=== PATIENT | female | born 1955 | race Caucasian/White ===

== ENCOUNTER 2022-09-14 19:57 | Emergency (ER) | payer OTHER, BC ==
[~2022-09-14] VITALS: Ht 152.4 cm; Wt 55.8 kg
[2022-09-14 20:22] VITALS: BP_SYST 140
--- NOTE | 2022-09-14 20:30 | NUR ---
PT FROM HOME WITH C/O OF RIGHT FOOT PAIN X 2 WEEKS, 11/03. PAIN INCREASES UPON AMBULATION, VSS. PT TO WAITING ROOM. REQUESTED FOR MSE.
--- NOTE | 2022-09-14 23:10 | NUR ---
DR. CERNA WITH PATIENT IN TRIAGE FOR MSE.
[2022-09-15] MEDS ORDERED: ASPI-862 PO (00:32)
[2022-09-15 00:35] VITALS: BP_SYST 140
--- NOTE | 2022-09-15 00:35 | NUR ---
Patient given written and verbal discharge instructions and verbalizes understanding. ER DR. CERNA discussed with patient the results and treatment provided. Patient in stable condition. ID arm band removed. Rx of ASPIRIN given. Patient educated on pain management and to follow up with PMD. Pain Scale 0. Opportunity for questions provided and answered. Medication side effect fact sheet provided.
== END 2022-09-15 00:35 | disposition home or self-care (01) ==
LOC: SED 19:57
DX: I80.01 Phlebitis and thrombophlebitis of superficial vessels of right lower extremity (principal); M79.661 Pain in right lower leg; Z79.899 Other long term (current) drug therapy
CPT/HCPCS: 93971; 99284